=== PATIENT | male | born 1990 | race Caucasian/White ===

== ENCOUNTER 2023-10-30 12:21 | Inpatient (IN) | payer OTHER, MEDICAID ==
[~2023-10-30] VITALS: Ht 170.2 cm; Wt 63.6 kg
[2023-10-30 15:26] VITALS: BP 126/78; PULSE 98; RESP 18; TEMP 98.2; O2SAT 98
[2023-10-30] MEDS: HALOPERIDOL 5 MG TABLET PO PRN (20:08)
[2023-10-30] MEDS: LORazepam 2 MG TABLET PO PRN (20:08)
[2023-10-30 20:30] VITALS: BP 118/64; PULSE 87; RESP 18; TEMP 98; O2SAT 95
[2023-10-30] MEDS: ZOLPIDEM TARTRATE 10 MG TABLET PO PRN (21:50)
[2023-10-30] MEDS ORDERED: ACETAMINOPHEN 325 MG TABLET PO PRN (22:15)
[2023-10-30] MEDS ORDERED: MAGNESIUM HYDROXIDE SUSPENSION 30 ML UDCUP PO PRN (22:15)
[2023-10-30] MEDS ORDERED: MAG HYDROX/ALUMINUM HYD/SIMETH ES 30 ML SUSPENSION UDCUP PO PRN (22:15)
[2023-10-30] MEDS ORDERED: CloNIDine HCL 0.1 MG TABLET PO PRN (22:15)
[2023-10-30] MEDS ORDERED: DOCUSATE SODIUM 100 MG CAPSULE PO PRN (22:15)
[2023-10-30] MEDS ORDERED: ALBUTEROL SULFATE HFA 90 MCG/PUFF 8 GM INHALER IH PRN (22:15)
[2023-10-30] MEDS ORDERED: ONDANSETRON 4 MG TABLET PO PRN (22:15)
[2023-10-30] MEDS ORDERED: LOPERAMIDE HCL 2 MG CAPSULE PO PRN (22:15)
[2023-10-30] MEDS ORDERED: PETROLATUM,WHITE 28 GM JELLY TP PRN (22:15)
[2023-10-31 08:04] VITALS: RESP 17
[2023-10-31 10:55] LABS: EOSINOPHILS % (AUTO) 4.3 % (1.0-6.0); HEMATOCRIT 37.6 % (41-53); HEMOGLOBIN 12.5 g/dL (13.5-17.5); LYMPHOCYTES # (AUTO) 2.5 K/uL (1.0-4.8); LYMPHOCYTES % (AUTO) 27.9 % (22.0-44.0); MEAN CORPUSCULAR HEMOGLOBIN 30.9 pg (26.0-34.0); MEAN CORPUSCULAR HGB CONC 33.3 G/dL (31.0-37.0); MEAN CORPUSCULAR VOLUME 93 fL (80-100); MONOCYTES # (AUTO) 0.6 K/uL (0.1-1.0); MONOCYTES % (AUTO) 6.5 % (2.0-9.0); NEUTROPHILS # (AUTO) 5.4 K/uL (1.8-7.7); NEUTROPHILS % (AUTO) 60.3 % (40.0-70.0); PLATELET COUNT (AUTO) 297 K/uL (150-450); RED BLOOD CELL COUNT(AUTO) 4.05 MIL/uL (4.50-5.90); RED CELL DISTRIBUTION WIDTH 14.5 % (11.5-14.5); WHITE BLOOD COUNT (AUTO) 8.9 K/uL (4.5-11.0)
[2023-10-31 11:12] LABS: ALANINE AMINOTRANSFERASE 284 U/L (12-78); ALBUMIN 3.5 g/dL (3.4-5.0); ALKALINE PHOSPHATASE 249 U/L (46-116); ANION GAP 6 mmol/L (8-16); ASPARTATE AMINOTRANSFERASE 69 U/L (15-37); BILIRUBIN,TOTAL 0.4 mg/dL (0.1-1.0); CALCIUM, TOTAL 8.8 mg/dL (8.8-10.5); CARBON DIOXIDE 29 mmol/L (22-29); CHLORIDE 105 mmol/L (98-107); CREATININE 0.76 mg/dL (0.60-1.30); GLOMERULAR FILTR. RATE CALC > 60 mL/min (>60); GLUCOSE,RANDOM 102 mg/dL (70-110); SODIUM SERUM 140 mmol/L (136-145); THYROID STIMULATING HORMONE 1.66 uIU/mL (0.36-3.74); TOTAL PROTEIN, SERUM 7.5 g/dL (6.4-8.2); UREA NITROGEN, BLOOD 13 mg/dL (7-18)
[2023-10-31] MEDS: ARIPiprazole 15 MG TABLET PO SCH (12:01)
[2023-10-31] MEDS: QUEtiapine FUMARATE 200 MG TABLET PO SCH ×2 (18:08→21:28)
[2023-10-31 20:30] VITALS: BP 117/66; PULSE 92; RESP 18; TEMP 97.9; O2SAT 96
[2023-10-31] MEDS: LITHIUM CARBONATE 600 MG CAPSULE PO SCH (21:27)
[2023-11-01 21:07] VITALS: RESP 18
[2023-11-02 08:37] VITALS: BP 122/76; PULSE 78; RESP 18; TEMP 98.2
[2023-11-02 14:39] LABS: CHOL/HDL RATIO 2.1 (4.2-7.3)
[2023-11-02 20:07] VITALS: BP 101/56; PULSE 99; RESP 18; TEMP 97.1; O2SAT 96
[2023-11-03 20:13] VITALS: BP 103/59; PULSE 100; RESP 18; TEMP 96.5; O2SAT 98
[2023-11-04 10:10] VITALS: BP 114/71; PULSE 109; RESP 18; TEMP 98; O2SAT 96
[2023-11-04 12:54] LABS: ALANINE AMINOTRANSFERASE 312 U/L (12-78); ALBUMIN 4.1 g/dL (3.4-5.0); ALKALINE PHOSPHATASE 308 U/L (46-116); ANION GAP 8 mmol/L (8-16); ASPARTATE AMINOTRANSFERASE 106 U/L (15-37); BILIRUBIN,TOTAL 0.7 mg/dL (0.1-1.0); CALCIUM, TOTAL 9.2 mg/dL (8.8-10.5); CARBON DIOXIDE 26 mmol/L (22-29); CHLORIDE 105 mmol/L (98-107); CREATININE 0.89 mg/dL (0.60-1.30); GLOMERULAR FILTR. RATE CALC > 60 mL/min (>60); GLUCOSE,RANDOM 113 mg/dL (70-110); POTASSIUM 3.8 mmol/L (3.5-5.1); SODIUM SERUM 139 mmol/L (136-145); TOTAL PROTEIN, SERUM 8.7 g/dL (6.4-8.2); UREA NITROGEN, BLOOD 16 mg/dL (7-18)
[2023-11-04 12:55] LABS: LITHIUM 0.57 mmol/L (0.60-1.20)
[2023-11-04 21:00] VITALS: RESP 19
[2023-11-05 08:18] VITALS: BP 112/64; PULSE 86; RESP 18; TEMP 97.9; O2SAT 95
[2023-11-05 21:01] VITALS: RESP 18; TEMP 98.7
[2023-11-06 09:00] VITALS: BP 114/68; PULSE 91; RESP 16; TEMP 97.3; O2SAT 98
[2023-11-06 21:08] VITALS: BP 113/57; PULSE 92; RESP 18; TEMP 97.8
[2023-11-07] MEDS: MULTIVITAMINS WITH MINERALS, THERAPEUTIC TABLET PO SCH (08:31)
[2023-11-07 10:04] VITALS: RESP 18
[2023-11-07 20:08] VITALS: BP 131/77; PULSE 74; RESP 18; TEMP 97.9; O2SAT 98
[2023-11-08 09:53] LABS: MAGNESIUM 1.6 mg/dL (1.80-2.40)
[2023-11-08 10:56] VITALS: BP 107/72; PULSE 99; RESP 18; TEMP 97.6; O2SAT 99
[2023-11-09 14:29] VITALS: BP 128/87; PULSE 105; RESP 18; TEMP 98.2; O2SAT 96
[2023-11-10 09:03] VITALS: BP 95/53; PULSE 78; RESP 18; TEMP 98.4; O2SAT 78
[2023-11-10 10:34] VITALS: BP 95/53; PULSE 78; RESP 18; TEMP 98.6
[2023-11-10] MEDS: IBUPROFEN 400 MG TABLET PO PRN (10:34)
[2023-11-10 11:34] VITALS: BP 101/62; PULSE 71; RESP 17; TEMP 98
[2023-11-10 20:00] VITALS: TEMP 97
[2023-11-11 08:42] VITALS: BP 120/75; PULSE 108; RESP 18; TEMP 97.5; O2SAT 98
[2023-11-11 20:12] VITALS: RESP 18
[2023-11-12 04:06] LABS: HEPATITIS A ANTIBODY IGM Negative (Negative); HEPATITIS B CORE IGM Negative (Negative); HEPATITIS C AB (EIA) Non Reactive (Non Reactive)
[2023-11-12 10:47] VITALS: BP 104/60; PULSE 104; RESP 18; TEMP 98.6; O2SAT 97
[2023-11-12 21:08] VITALS: RESP 18
[2023-11-13 14:57] VITALS: BP 103/63; PULSE 79; RESP 18; TEMP 98.2
[2023-11-14 08:46] VITALS: BP 105/73; PULSE 102; RESP 17; TEMP 97.4; O2SAT 100
[2023-11-14 20:24] VITALS: BP 140/73; PULSE 99; RESP 18; TEMP 96.7; O2SAT 97
[2023-11-15 09:34] VITALS: BP 110/55; PULSE 92; RESP 18; TEMP 97.1; O2SAT 98
[2023-11-15] MEDS: TUBERCULIN, PURIFIED PROTEIN DERIVATIVE 5 TU/0.1 ML SYRINGE ID ONE (11:28)
[2023-11-15 20:35] VITALS: BP 119/62; PULSE 91; RESP 18; TEMP 97.5; O2SAT 97
[2023-11-16 18:12] VITALS: BP 112/63; PULSE 79; RESP 18; TEMP 98.1; O2SAT 98
[2023-11-17 09:10] VITALS: BP 109/60; PULSE 88; RESP 19; TEMP 97.9; O2SAT 99
[2023-11-18 08:23] VITALS: BP 117/59; PULSE 98; RESP 18; TEMP 98.4; O2SAT 99
[2023-11-18 20:23] VITALS: BP 110/63; PULSE 91; RESP 17; TEMP 97.6; O2SAT 97
[2023-11-19 09:22] VITALS: BP 113/65; PULSE 99; RESP 18; TEMP 97.1; O2SAT 99
[2023-11-19 10:24] VITALS: RESP 16
[2023-11-19 21:47] VITALS: RESP 18
[2023-11-20 07:22] LABS: ALANINE AMINOTRANSFERASE 172 U/L (12-78); ALBUMIN 3.5 g/dL (3.4-5.0); ALKALINE PHOSPHATASE 235 U/L (46-116); ANION GAP 9 mmol/L (8-16); ASPARTATE AMINOTRANSFERASE 58 U/L (15-37); BILIRUBIN,TOTAL 0.5 mg/dL (0.1-1.0); CALCIUM, TOTAL 9.1 mg/dL (8.8-10.5); CARBON DIOXIDE 27 mmol/L (22-29); CHLORIDE 104 mmol/L (98-107); CREATININE 0.81 mg/dL (0.60-1.30); GLOMERULAR FILTR. RATE CALC > 60 mL/min (>60); GLUCOSE,RANDOM 97 mg/dL (70-110); PHOSPHORUS 3.4 mg/dL (2.5-4.9); POTASSIUM 4.2 mmol/L (3.5-5.1); SODIUM SERUM 140 mmol/L (136-145); TOTAL PROTEIN, SERUM 7.6 g/dL (6.4-8.2); UREA NITROGEN, BLOOD 16 mg/dL (7-18)
[2023-11-20 08:55] VITALS: RESP 18
[2023-11-20 20:50] VITALS: RESP 18
[2023-11-21 08:20] VITALS: BP 138/63; PULSE 102; RESP 18; TEMP 97; O2SAT 96
[2023-11-21 20:58] VITALS: RESP 18
[2023-11-22 10:17] VITALS: BP 116/65; PULSE 87; RESP 18; TEMP 97.9; O2SAT 98
[2023-11-22 23:23] VITALS: RESP 18
[2023-11-23 09:56] VITALS: RESP 18
[2023-11-23 23:31] VITALS: RESP 18
[2023-11-24 08:54] VITALS: BP 114/72; PULSE 114; RESP 16; TEMP 97.7; O2SAT 100
[2023-11-25 09:22] VITALS: PULSE 100; RESP 19; TEMP 98.1; O2SAT 99
[2023-11-27 09:36] VITALS: BP 115/73; PULSE 92; RESP 18; TEMP 98.1; O2SAT 97
[2023-11-27 20:30] VITALS: BP 123/76; PULSE 94; RESP 18; TEMP 97.9; O2SAT 96
[2023-11-28 09:55] VITALS: RESP 19
[2023-11-28] MEDS: MAGNESIUM OXIDE 400 MG TABLET PO ONE (10:14)
[2023-11-28 21:34] VITALS: RESP 18
[2023-11-29 09:53] VITALS: RESP 18
[2023-11-29] MEDS: MAGNESIUM OXIDE 400 MG TABLET PO ONE (14:35)
[2023-11-29 21:14] VITALS: RESP 18
[2023-11-30 09:13] VITALS: BP 103/62; PULSE 92; RESP 19; TEMP 97; O2SAT 97
[2023-11-30] MEDS: MAGNESIUM OXIDE 400 MG TABLET PO ONE ×2 (14:30→20:08)
[2023-12-01] MEDS: MAGNESIUM OXIDE 400 MG TABLET PO SCH ×2 (08:02→16:10)
[2023-12-01 09:25] VITALS: BP 102/63; PULSE 87; RESP 18; TEMP 98.4; O2SAT 95
[2023-12-01 10:12] LABS: ANION GAP 6 mmol/L (8-16); CALCIUM, TOTAL 9.3 mg/dL (8.8-10.5); CARBON DIOXIDE 29 mmol/L (22-29); CHLORIDE 102 mmol/L (98-107); CREATININE 0.87 mg/dL (0.60-1.30); GLOMERULAR FILTR. RATE CALC > 60 mL/min (>60); GLUCOSE,RANDOM 121 mg/dL (70-110); POTASSIUM 4.1 mmol/L (3.5-5.1); SODIUM SERUM 137 mmol/L (136-145); UREA NITROGEN, BLOOD 10 mg/dL (7-18)
[2023-12-02 11:00] VITALS: RESP 18
[2023-12-02] MEDS: DiphenhydrAMINE HCL 50 MG/ML VIAL IM ONE (17:20)
[2023-12-02] MEDS: LORazepam 2 MG/ML VIAL IM ONE (17:21)
[2023-12-02] MEDS: HALOPERIDOL LACTATE 5 MG/ML VIAL IM ONE (17:22)
[2023-12-02 20:36] VITALS: RESP 18
[2023-12-03 08:51] VITALS: RESP 18
[2023-12-03] MEDS ORDERED: HALOPERIDOL LACTATE 5 MG/ML VIAL ONE (10:25)
[2023-12-03] MEDS ORDERED: LORazepam 2 MG/ML VIAL ONE (10:25)
[2023-12-03] MEDS ORDERED: DiphenhydrAMINE HCL 50 MG/ML VIAL ONE (10:26)
[2023-12-03] MEDS: LORazepam 2 MG/ML VIAL IM ONE (10:37)
[2023-12-03] MEDS: DiphenhydrAMINE HCL 50 MG/ML VIAL IM ONE (10:37)
[2023-12-03] MEDS: HALOPERIDOL LACTATE 5 MG/ML VIAL IM ONE (10:39)
[2023-12-03 20:22] VITALS: RESP 18
[2023-12-04] MEDS: DiphenhydrAMINE HCL 50 MG/ML VIAL IM ONE (07:46)
[2023-12-04] MEDS: HALOPERIDOL LACTATE 5 MG/ML VIAL IM ONE (07:48)
[2023-12-04] MEDS: LORazepam 2 MG/ML VIAL IM ONE (07:49)
[2023-12-04 08:56] VITALS: BP 104/72; PULSE 103; RESP 18; TEMP 98.6
[2023-12-05 08:09] VITALS: RESP 18
[2023-12-05] MEDS: NICOTINE 14 MG/24 HOUR PATCH TD PRN (09:25)
[2023-12-05 21:19] VITALS: BP 97/66; PULSE 100; RESP 18; TEMP 97.5; O2SAT 100
[2023-12-06] MEDS: LORazepam 2 MG/ML VIAL IM ONE (03:27)
[2023-12-06] MEDS: DiphenhydrAMINE HCL 50 MG/ML VIAL IM ONE (03:30)
[2023-12-06] MEDS: HALOPERIDOL LACTATE 5 MG/ML VIAL IM ONE (03:30)
[2023-12-06 08:39] VITALS: TEMP 97.8
[2023-12-06] MEDS: LITHIUM CARBONATE 300 MG CAPSULE PO SCH (09:15)
[2023-12-06 20:35] VITALS: RESP 18
[2023-12-07 09:11] VITALS: BP 108/63; PULSE 97; RESP 18; TEMP 98.1; O2SAT 97
[2023-12-07 20:55] VITALS: RESP 18
[2023-12-08 08:10] VITALS: TEMP 97.9
[2023-12-08] MEDS: DiphenhydrAMINE HCL 50 MG/ML VIAL IM ONE (14:44)
[2023-12-08] MEDS: HALOPERIDOL LACTATE 5 MG/ML VIAL IM ONE (14:47)
[2023-12-08] MEDS: LORazepam 2 MG/ML VIAL IM ONE (14:47)
[2023-12-09 08:10] VITALS: BP 127/87; PULSE 99; RESP 18; TEMP 98; O2SAT 100
[2023-12-09 20:27] VITALS: BP 105/77; PULSE 99; RESP 18; TEMP 97.8; O2SAT 98
[2023-12-10 08:12] VITALS: BP 129/78; PULSE 17; RESP 17; TEMP 97.9; O2SAT 99
[2023-12-10 20:30] VITALS: RESP 18
[2023-12-11 08:10] VITALS: BP 114/72; PULSE 106; RESP 16; TEMP 98.1; O2SAT 96
[2023-12-11] MEDS: LITHIUM CARBONATE 300 MG CAPSULE PO SCH (09:21)
[2023-12-12 08:51] VITALS: RESP 18
[2023-12-12 22:18] VITALS: BP 119/72; PULSE 108; RESP 18; TEMP 98.1; O2SAT 98
[2023-12-13 08:48] VITALS: TEMP 97.8
[2023-12-13 20:07] VITALS: BP 135/77; PULSE 94; RESP 18; TEMP 97.7; O2SAT 97
[2023-12-14 08:30] VITALS: TEMP 98
[2023-12-14] MEDS ORDERED: LORazepam 2 MG/ML VIAL ONE (10:19)
[2023-12-14] MEDS ORDERED: DiphenhydrAMINE HCL 50 MG/ML VIAL ONE (10:19)
[2023-12-14] MEDS ORDERED: HALOPERIDOL LACTATE 5 MG/ML VIAL ONE (10:19)
[2023-12-14] MEDS: LORazepam 2 MG/ML VIAL IM ONE (10:34)
[2023-12-14] MEDS: DiphenhydrAMINE HCL 50 MG/ML VIAL IM ONE (10:35)
[2023-12-14] MEDS: HALOPERIDOL LACTATE 5 MG/ML VIAL IM ONE (10:38)
[2023-12-14 22:18] VITALS: RESP 19; TEMP 97.8; O2SAT 98
[2023-12-15 08:24] VITALS: BP 102/68; PULSE 80; RESP 18; TEMP 98.2; O2SAT 97
[2023-12-15] MEDS: ARIPiprazole 10 MG TABLET PO SCH (08:58)
[2023-12-16 09:06] VITALS: BP 115/16; PULSE 92; RESP 17; TEMP 98.2
[2023-12-16 20:36] VITALS: BP 100/65; PULSE 95; RESP 18; TEMP 98.4
[2023-12-17 08:02] VITALS: BP 117/76; PULSE 89; RESP 18; TEMP 97.9
[2023-12-18 08:00] VITALS: BP 128/78; PULSE 82; RESP 18; TEMP 97.8; O2SAT 97
[2023-12-18] MEDS ORDERED: LORazepam 2 MG/ML VIAL ONE (13:57)
[2023-12-18] MEDS ORDERED: DiphenhydrAMINE HCL 50 MG/ML VIAL ONE (13:58)
[2023-12-18] MEDS: HALOPERIDOL LACTATE 5 MG/ML VIAL IM ONE ×2 (14:14→22:09)
[2023-12-18] MEDS: DiphenhydrAMINE HCL 50 MG/ML VIAL IM ONE ×2 (14:15→22:09)
[2023-12-18] MEDS: LORazepam 2 MG/ML VIAL IM ONE ×2 (14:17→22:08)
[2023-12-18 21:00] VITALS: BP 125/77; PULSE 84; RESP 18; TEMP 97.9; O2SAT 97
[2023-12-19 08:11] VITALS: TEMP 98
[2023-12-19] MEDS: HALOPERIDOL LACTATE 5 MG/ML VIAL IM PRN (11:33)
[2023-12-19 17:46] VITALS: RESP 18
[2023-12-19 20:07] VITALS: RESP 18
[2023-12-20 08:11] VITALS: RESP 18; TEMP 97.6
[2023-12-20 20:45] VITALS: RESP 18
[2023-12-21 08:30] VITALS: RESP 16
[2023-12-21 20:02] VITALS: RESP 18
[2023-12-22 09:25] VITALS: RESP 18
[2023-12-22 20:24] VITALS: BP 137/70; PULSE 85; RESP 17; TEMP 98.5; O2SAT 97
[2023-12-23 08:30] VITALS: BP 124/64; PULSE 95; RESP 18; TEMP 98.1; O2SAT 98
[2023-12-23 21:22] VITALS: RESP 18
[2023-12-24] MEDS: DiphenhydrAMINE HCL 50 MG/ML VIAL IM ONE (10:27)
[2023-12-24] MEDS: LORazepam 2 MG/ML VIAL IM ONE (10:28)
[2023-12-24] MEDS: HALOPERIDOL LACTATE 5 MG/ML VIAL IM ONE (10:29)
[2023-12-24 11:50] LABS: BASOPHILS % (AUTO) 0.8 % (0.0-2.0); EOSINOPHILS % (AUTO) 3.9 % (1.0-6.0); HEMATOCRIT 43.6 % (41-53); HEMOGLOBIN 14.1 g/dL (13.5-17.5); LYMPHOCYTES # (AUTO) 1.7 K/uL (1.0-4.8); LYMPHOCYTES % (AUTO) 17.7 % (22.0-44.0); MEAN CORPUSCULAR HEMOGLOBIN 29.9 pg (26.0-34.0); MEAN CORPUSCULAR HGB CONC 32.4 G/dL (31.0-37.0); MEAN CORPUSCULAR VOLUME 92 fL (80-100); MONOCYTES # (AUTO) 0.6 K/uL (0.1-1.0); MONOCYTES % (AUTO) 6.3 % (2.0-9.0); NEUTROPHILS # (AUTO) 6.9 K/uL (1.8-7.7); NEUTROPHILS % (AUTO) 71.3 % (40.0-70.0); PLATELET COUNT (AUTO) 296 K/uL (150-450); RED BLOOD CELL COUNT(AUTO) 4.72 MIL/uL (4.50-5.90); WHITE BLOOD COUNT (AUTO) 9.7 K/uL (4.5-11.0)
[2023-12-24 15:44] VITALS: RESP 18
[2023-12-24] MEDS: CloZAPine 25 MG TABLET PO SCH (16:22)
[2023-12-24] MEDS: QUEtiapine FUMARATE 200 MG TABLET PO SCH (20:43)
[2023-12-24 22:39] VITALS: RESP 18
[2023-12-25] MEDS: CloZAPine 25 MG TABLET PO SCH ×2 (07:46→20:58)
[2023-12-25 11:12] VITALS: BP 124/82; PULSE 110; RESP 18; TEMP 97.1; O2SAT 99
[2023-12-25] MEDS: DIVALPROEX SODIUM 500 MG DR TABLET PO SCH (11:51)
[2023-12-25 12:06] LABS: HEPATITIS A ANTIBODY IGM Negative (Negative); HEPATITIS B CORE IGM Negative (Negative); HEPATITIS C AB (EIA) Non Reactive (Non Reactive)
[2023-12-25 13:22] LABS: EOSINOPHILS % (AUTO) 2.1 % (1.0-6.0); HEMATOCRIT 40.8 % (41-53); LYMPHOCYTES # (AUTO) 3.6 K/uL (1.0-4.8); LYMPHOCYTES % (AUTO) 28.7 % (22.0-44.0); MEAN CORPUSCULAR HEMOGLOBIN 29.5 pg (26.0-34.0); MEAN CORPUSCULAR HGB CONC 31.9 G/dL (31.0-37.0); MEAN CORPUSCULAR VOLUME 93 fL (80-100); MONOCYTES % (AUTO) 7.7 % (2.0-9.0); NEUTROPHILS # (AUTO) 7.7 K/uL (1.8-7.7); NEUTROPHILS % (AUTO) 60.5 % (40.0-70.0); PLATELET COUNT (AUTO) 199 K/uL (150-450); RED BLOOD CELL COUNT(AUTO) 4.41 MIL/uL (4.50-5.90); RED CELL DISTRIBUTION WIDTH 15.1 % (11.5-14.5); WHITE BLOOD COUNT (AUTO) 12.7 K/uL (4.5-11.0)
[2023-12-25 22:25] VITALS: RESP 18
[2023-12-26] MEDS: CloZAPine 25 MG TABLET PO SCH ×2 (07:54→21:08)
[2023-12-26 08:58] VITALS: BP 131/79; PULSE 96; RESP 19; TEMP 97.2; O2SAT 99
[2023-12-26] MEDS: QUEtiapine FUMARATE 100 MG TABLET PO SCH (16:06)
[2023-12-26 21:02] VITALS: RESP 18
[2023-12-27] MEDS: CloZAPine 25 MG TABLET PO SCH (08:17)
[2023-12-27 09:01] VITALS: BP 120/68; PULSE 65; RESP 17; TEMP 98; O2SAT 98
[2023-12-27] MEDS: LORazepam 2 MG/ML VIAL IM ONE (15:58)
[2023-12-27] MEDS: DiphenhydrAMINE HCL 50 MG/ML VIAL IM ONE (15:58)
[2023-12-27] MEDS: ChlorproMAZINE HCL 50 MG/2 ML AMP IM ONE (15:58)
[2023-12-27] MEDS ORDERED: LORazepam 2 MG/ML VIAL IM ONE (18:15)
[2023-12-27] MEDS ORDERED: DiphenhydrAMINE HCL 50 MG/ML VIAL IM ONE (18:15)
[2023-12-27] MEDS ORDERED: ChlorproMAZINE HCL 50 MG/2 ML AMP IM ONE (18:15)
[2023-12-27 20:30] VITALS: BP 120/68; PULSE 88; RESP 18; TEMP 97.7; O2SAT 97
[2023-12-28 09:28] VITALS: RESP 19; TEMP 98
[2023-12-28 20:04] VITALS: RESP 18
[2023-12-29] MEDS: CloZAPine 25 MG TABLET PO SCH (08:42)
[2023-12-29 09:19] VITALS: RESP 18
[2023-12-29 20:04] VITALS: RESP 18
[2023-12-29] MEDS: CloZAPine 100 MG TABLET PO SCH (20:15)
[2023-12-30] MEDS: CloZAPine 25 MG TABLET PO SCH (09:01)
[2023-12-30 09:14] VITALS: RESP 18
[2023-12-30 20:22] VITALS: RESP 18
[2023-12-30] MEDS: CloZAPine 100 MG TABLET PO SCH (21:10)
[2023-12-31] MEDS: QUEtiapine FUMARATE 25 MG TABLET PO SCH (08:37)
[2023-12-31] MEDS: CloZAPine 25 MG TABLET PO SCH (08:37)
[2023-12-31 08:41] VITALS: BP 144/100; PULSE 78; RESP 18; TEMP 97.6; O2SAT 97
[2023-12-31] MEDS ORDERED: ChlorproMAZINE HCL 50 MG/2 ML AMP ONE (16:06)
[2023-12-31] MEDS ORDERED: LORazepam 2 MG/ML VIAL ONE (16:06)
[2023-12-31] MEDS ORDERED: DiphenhydrAMINE HCL 50 MG/ML VIAL ONE (16:06)
[2023-12-31] MEDS: LORazepam 2 MG/ML VIAL IM ONE (16:22)
[2023-12-31] MEDS: ChlorproMAZINE HCL 50 MG/2 ML AMP IM ONE (16:22)
[2023-12-31] MEDS: DiphenhydrAMINE HCL 50 MG/ML VIAL IM ONE (16:22)
[2023-12-31 20:01] VITALS: RESP 18
[2023-12-31] MEDS: CloZAPine 100 MG TABLET PO SCH (20:47)
[2024-01-01 07:15] LABS: BASOPHILS % (AUTO) 1.1 % (0.0-2.0); EOSINOPHILS % (AUTO) 2.6 % (1.0-6.0); HEMATOCRIT 42.7 % (41-53); LYMPHOCYTES # (AUTO) 3.2 K/uL (1.0-4.8); LYMPHOCYTES % (AUTO) 26.8 % (22.0-44.0); MEAN CORPUSCULAR HEMOGLOBIN 30.5 pg (26.0-34.0); MEAN CORPUSCULAR HGB CONC 32.8 G/dL (31.0-37.0); MEAN CORPUSCULAR VOLUME 93 fL (80-100); MONOCYTES # (AUTO) 0.8 K/uL (0.1-1.0); MONOCYTES % (AUTO) 6.8 % (2.0-9.0); NEUTROPHILS # (AUTO) 7.4 K/uL (1.8-7.7); NEUTROPHILS % (AUTO) 62.7 % (40.0-70.0); PLATELET COUNT (AUTO) 262 K/uL (150-450); RED BLOOD CELL COUNT(AUTO) 4.59 MIL/uL (4.50-5.90); RED CELL DISTRIBUTION WIDTH 15.7 % (11.5-14.5); WHITE BLOOD COUNT (AUTO) 11.8 K/uL (4.5-11.0)
[2024-01-01 08:12] VITALS: BP 121/78; PULSE 81; RESP 18; TEMP 99.1
[2024-01-01] MEDS: CloZAPine 100 MG TABLET PO SCH (08:39)
[2024-01-01 20:22] VITALS: BP 133/73; PULSE 105; RESP 18; TEMP 98.3
[2024-01-02 12:52] VITALS: RESP 18
[2024-01-02 21:50] VITALS: RESP 18
[2024-01-03] MEDS: CloZAPine 25 MG TABLET PO SCH (08:55)
[2024-01-03 08:57] VITALS: RESP 18; TEMP 98.7
[2024-01-03] MEDS: CloZAPine 100 MG TABLET PO SCH (20:42)
[2024-01-03 22:28] VITALS: RESP 18
[2024-01-04] MEDS: CloZAPine 25 MG TABLET PO SCH (09:10)
[2024-01-04 09:36] VITALS: BP 113/78; PULSE 111; RESP 18; TEMP 98; O2SAT 99
[2024-01-04] MEDS: CloZAPine 100 MG TABLET PO SCH (21:03)
[2024-01-04 21:11] VITALS: RESP 18
[2024-01-05] MEDS: CloZAPine 100 MG TABLET PO SCH ×2 (07:58→20:06)
[2024-01-05 09:38] VITALS: PULSE 114; RESP 16; TEMP 97.6; O2SAT 95
[2024-01-05 21:06] VITALS: RESP 18
[2024-01-06 08:19] VITALS: PULSE 102; RESP 18; TEMP 97.5; O2SAT 100
[2024-01-06 20:33] VITALS: RESP 18
[2024-01-07 08:38] VITALS: BP 132/83; PULSE 91; RESP 18; TEMP 98.4; O2SAT 100
[2024-01-07 21:42] VITALS: BP 138/78; PULSE 89; RESP 19; TEMP 98.2; O2SAT 99
[2024-01-08 06:59] LABS: BASOPHILS % (AUTO) 1.1 % (0.0-2.0); EOSINOPHILS % (AUTO) 3.2 % (1.0-6.0); HEMATOCRIT 41.1 % (41-53); HEMOGLOBIN 13.5 g/dL (13.5-17.5); LYMPHOCYTES # (AUTO) 1.6 K/uL (1.0-4.8); LYMPHOCYTES % (AUTO) 26.3 % (22.0-44.0); MEAN CORPUSCULAR HEMOGLOBIN 30.5 pg (26.0-34.0); MEAN CORPUSCULAR HGB CONC 32.8 G/dL (31.0-37.0); MEAN CORPUSCULAR VOLUME 93 fL (80-100); MONOCYTES # (AUTO) 0.4 K/uL (0.1-1.0); MONOCYTES % (AUTO) 6.1 % (2.0-9.0); NEUTROPHILS # (AUTO) 3.8 K/uL (1.8-7.7); NEUTROPHILS % (AUTO) 63.3 % (40.0-70.0); PLATELET COUNT (AUTO) 250 K/uL (150-450); RED BLOOD CELL COUNT(AUTO) 4.43 MIL/uL (4.50-5.90); RED CELL DISTRIBUTION WIDTH 15.6 % (11.5-14.5)
[2024-01-08 10:12] VITALS: TEMP 98
[2024-01-08 22:43] VITALS: RESP 18
[2024-01-09 08:47] VITALS: BP 133/80; PULSE 96; RESP 18; TEMP 97.7; O2SAT 100
[2024-01-09 21:09] VITALS: TEMP 97.9
[2024-01-10 09:26] VITALS: BP 134/82; PULSE 68; RESP 18; TEMP 97.6; O2SAT 97
[2024-01-10 20:37] VITALS: RESP 18
[2024-01-11 08:30] VITALS: BP 115/70; PULSE 99; RESP 18; TEMP 97.8; O2SAT 97
[2024-01-11 20:52] VITALS: BP 116/65; PULSE 105; RESP 18; TEMP 98.6; O2SAT 96
[2024-01-12 09:43] VITALS: RESP 18
[2024-01-12 21:55] VITALS: RESP 18
[2024-01-13 09:00] VITALS: RESP 18
[2024-01-13 21:54] VITALS: RESP 18
[2024-01-14 09:26] VITALS: RESP 18
[2024-01-14 20:42] VITALS: BP 136/75; PULSE 88; RESP 19; TEMP 97.9; O2SAT 89
[2024-01-15 08:30] VITALS: BP 121/81; PULSE 95; RESP 14
[2024-01-15] MEDS ORDERED: LORazepam 2 MG/ML VIAL ONE (14:20)
[2024-01-15] MEDS ORDERED: ChlorproMAZINE HCL 50 MG/2 ML AMP ONE (14:21)
[2024-01-15] MEDS ORDERED: DiphenhydrAMINE HCL 50 MG/ML VIAL ONE (14:21)
[2024-01-15] MEDS: ChlorproMAZINE HCL 50 MG/2 ML AMP IM ONE (14:34)
[2024-01-15] MEDS: LORazepam 2 MG/ML VIAL IM ONE (14:35)
[2024-01-15] MEDS: DiphenhydrAMINE HCL 50 MG/ML VIAL IM ONE (14:35)
[2024-01-15 21:08] VITALS: RESP 18
[2024-01-16 07:20] LABS: BASOPHILS % (AUTO) 0.7 % (0.0-2.0); EOSINOPHILS % (AUTO) 2.2 % (1.0-6.0); HEMATOCRIT 44.2 % (41-53); HEMOGLOBIN 14.5 g/dL (13.5-17.5); LYMPHOCYTES # (AUTO) 2.2 K/uL (1.0-4.8); LYMPHOCYTES % (AUTO) 24.1 % (22.0-44.0); MEAN CORPUSCULAR HEMOGLOBIN 30.4 pg (26.0-34.0); MEAN CORPUSCULAR HGB CONC 32.8 G/dL (31.0-37.0); MEAN CORPUSCULAR VOLUME 93 fL (80-100); MONOCYTES # (AUTO) 0.7 K/uL (0.1-1.0); MONOCYTES % (AUTO) 7.2 % (2.0-9.0); NEUTROPHILS % (AUTO) 65.8 % (40.0-70.0); PLATELET COUNT (AUTO) 290 K/uL (150-450); RED BLOOD CELL COUNT(AUTO) 4.78 MIL/uL (4.50-5.90); RED CELL DISTRIBUTION WIDTH 15.3 % (11.5-14.5); WHITE BLOOD COUNT (AUTO) 9.1 K/uL (4.5-11.0)
[2024-01-16 11:01] VITALS: RESP 17
[2024-01-16 20:56] VITALS: RESP 18
[2024-01-17 08:01] VITALS: RESP 17
[2024-01-17 21:26] VITALS: RESP 18
[2024-01-18 08:23] VITALS: BP 120/65; PULSE 92; RESP 18; TEMP 98
[2024-01-18 21:22] VITALS: RESP 18
[2024-01-20 08:33] VITALS: BP 137/82; PULSE 99; RESP 19; TEMP 97.1; O2SAT 96
[2024-01-20 21:03] VITALS: BP 123/75; PULSE 98; RESP 18; TEMP 98.2; O2SAT 98
[2024-01-21 09:33] VITALS: RESP 18
[2024-01-21 21:58] VITALS: RESP 18
[2024-01-22 09:08] VITALS: BP 137/62; PULSE 107; RESP 17; TEMP 97.2; O2SAT 96
[2024-01-22 09:42] LABS: BASOPHILS % (AUTO) 0.8 % (0.0-2.0); EOSINOPHILS % (AUTO) 2.1 % (1.0-6.0); HEMATOCRIT 43.8 % (41-53); HEMOGLOBIN 14.2 g/dL (13.5-17.5); LYMPHOCYTES # (AUTO) 2.7 K/uL (1.0-4.8); LYMPHOCYTES % (AUTO) 31.9 % (22.0-44.0); MEAN CORPUSCULAR HGB CONC 32.5 G/dL (31.0-37.0); MEAN CORPUSCULAR VOLUME 92 fL (80-100); MONOCYTES # (AUTO) 0.6 K/uL (0.1-1.0); MONOCYTES % (AUTO) 6.6 % (2.0-9.0); NEUTROPHILS # (AUTO) 4.9 K/uL (1.8-7.7); NEUTROPHILS % (AUTO) 58.6 % (40.0-70.0); PLATELET COUNT (AUTO) 325 K/uL (150-450); RED BLOOD CELL COUNT(AUTO) 4.74 MIL/uL (4.50-5.90); RED CELL DISTRIBUTION WIDTH 15.2 % (11.5-14.5); WHITE BLOOD COUNT (AUTO) 8.4 K/uL (4.5-11.0)
[2024-01-22] MEDS: ChlorproMAZINE HCL 50 MG/2 ML AMP IM ONE (17:08)
[2024-01-22] MEDS: LORazepam 2 MG/ML VIAL IM ONE (17:08)
[2024-01-22] MEDS: DiphenhydrAMINE HCL 50 MG/ML VIAL IM ONE (17:09)
[2024-01-23 08:43] VITALS: RESP 16
[2024-01-23 20:53] VITALS: RESP 18
[2024-01-24 08:12] VITALS: BP 133/76; PULSE 110; RESP 18; TEMP 97.8; O2SAT 95
[2024-01-24 21:04] VITALS: RESP 19; TEMP 97.9
[2024-01-25 09:21] VITALS: BP 136/73; PULSE 102; RESP 18; TEMP 98; O2SAT 100
[2024-01-25 09:23] VITALS: BP 136/73; PULSE 102; RESP 16; TEMP 98; O2SAT 100
[2024-01-25 22:04] VITALS: BP 135/87; PULSE 95; RESP 18; TEMP 98; O2SAT 95
[2024-01-26 08:09] VITALS: RESP 18; TEMP 98
[2024-01-26 21:08] VITALS: BP 113/58; PULSE 91; RESP 18; TEMP 97.4; O2SAT 97
[2024-01-27 08:08] VITALS: RESP 16
[2024-01-27] MEDS ORDERED: LORazepam 2 MG/ML VIAL ONE (13:32)
[2024-01-27] MEDS ORDERED: ChlorproMAZINE HCL 50 MG/2 ML AMP ONE (13:33)
[2024-01-27] MEDS ORDERED: DiphenhydrAMINE HCL 50 MG/ML VIAL ONE (13:33)
[2024-01-27] MEDS: LORazepam 2 MG/ML VIAL IM ONE (13:47)
[2024-01-27] MEDS: ChlorproMAZINE HCL 50 MG/2 ML AMP IM ONE (13:47)
[2024-01-27] MEDS: DiphenhydrAMINE HCL 50 MG/ML VIAL IM ONE (13:47)
[2024-01-27] MEDS: LITHIUM CARBONATE 600 MG CAPSULE PO SCH (20:22)
[2024-01-27 20:43] VITALS: RESP 16
[2024-01-28 08:05] VITALS: RESP 17
[2024-01-29 08:32] VITALS: RESP 18; TEMP 98
[2024-01-29 22:25] VITALS: RESP 18
[2024-01-30 09:00] LABS: BASOPHILS % (AUTO) 1.2 % (0.0-2.0); EOSINOPHILS % (AUTO) 1.8 % (1.0-6.0); HEMATOCRIT 42.4 % (41-53); HEMOGLOBIN 13.8 g/dL (13.5-17.5); LYMPHOCYTES # (AUTO) 3.1 K/uL (1.0-4.8); LYMPHOCYTES % (AUTO) 30.9 % (22.0-44.0); MEAN CORPUSCULAR HGB CONC 32.6 G/dL (31.0-37.0); MEAN CORPUSCULAR VOLUME 92 fL (80-100); MONOCYTES # (AUTO) 0.7 K/uL (0.1-1.0); MONOCYTES % (AUTO) 7.3 % (2.0-9.0); NEUTROPHILS # (AUTO) 5.9 K/uL (1.8-7.7); NEUTROPHILS % (AUTO) 58.8 % (40.0-70.0); PLATELET COUNT (AUTO) 281 K/uL (150-450); RED CELL DISTRIBUTION WIDTH 14.9 % (11.5-14.5); WHITE BLOOD COUNT (AUTO) 10.1 K/uL (4.5-11.0)
[2024-01-30 09:17] VITALS: TEMP 97.7
[2024-01-30] MEDS ORDERED: ChlorproMAZINE HCL 50 MG/2 ML AMP ONE (10:26)
[2024-01-30] MEDS ORDERED: LORazepam 2 MG/ML VIAL ONE (10:26)
[2024-01-30] MEDS ORDERED: DiphenhydrAMINE HCL 50 MG/ML VIAL ONE (10:26)
[2024-01-30] MEDS: DiphenhydrAMINE HCL 50 MG/ML VIAL IM ONE (10:43)
[2024-01-30] MEDS: LORazepam 2 MG/ML VIAL IM ONE (10:44)
[2024-01-30] MEDS: ChlorproMAZINE HCL 50 MG/2 ML AMP IM ONE (10:44)
[2024-01-30] MEDS: CloZAPine 100 MG TABLET PO SCH (21:18)
[2024-01-31 07:15] LABS: ANION GAP 9 mmol/L (8-16); CALCIUM, TOTAL 8.8 mg/dL (8.8-10.5); CARBON DIOXIDE 26 mmol/L (22-29); CHLORIDE 104 mmol/L (98-107); CREATININE 0.87 mg/dL (0.60-1.30); GLOMERULAR FILTR. RATE CALC > 60 mL/min (>60); GLUCOSE,RANDOM 96 mg/dL (70-110); POTASSIUM 4.4 mmol/L (3.5-5.1); SODIUM SERUM 138 mmol/L (136-145); UREA NITROGEN, BLOOD 10 mg/dL (7-18)
[2024-01-31 08:21] VITALS: RESP 18; TEMP 98.2
[2024-01-31] MEDS: DIVALPROEX SODIUM 500 MG DR TABLET PO SCH (11:30)
[2024-01-31 21:45] VITALS: BP 101/63; PULSE 70; RESP 18; TEMP 97.7
[2024-02-01 08:43] VITALS: BP 117/72; PULSE 100; RESP 18; TEMP 97.7
[2024-02-02 08:15] VITALS: BP 129/58; PULSE 107; RESP 17; TEMP 97.3; O2SAT 95
[2024-02-03 10:18] VITALS: BP 136/87; PULSE 80; RESP 17; TEMP 98; O2SAT 97
[2024-02-03 20:32] VITALS: BP 126/81; PULSE 100; RESP 18; TEMP 97.6; O2SAT 95
[2024-02-04 08:08] VITALS: BP 120/73; PULSE 110; RESP 17; TEMP 97.4; O2SAT 97
[2024-02-04] MEDS: DiphenhydrAMINE HCL 50 MG/ML VIAL IM ONE (15:57)
[2024-02-04] MEDS: ChlorproMAZINE HCL 50 MG/2 ML AMP IM ONE (15:58)
[2024-02-04] MEDS: LORazepam 2 MG/ML VIAL IM ONE (15:58)
[2024-02-04 21:11] VITALS: BP 124/79; PULSE 104; RESP 18; TEMP 97.9; O2SAT 98
[2024-02-05 08:19] VITALS: BP 115/65; PULSE 100; RESP 18; TEMP 98; O2SAT 97
[2024-02-06 08:14] VITALS: TEMP 98.1
[2024-02-06 10:06] LABS: BASOPHILS % (AUTO) 0.8 % (0.0-2.0); EOSINOPHILS % (AUTO) 1.9 % (1.0-6.0); HEMATOCRIT 40.7 % (41-53); HEMOGLOBIN 13.3 g/dL (13.5-17.5); LYMPHOCYTES # (AUTO) 3.3 K/uL (1.0-4.8); LYMPHOCYTES % (AUTO) 31.1 % (22.0-44.0); MEAN CORPUSCULAR HEMOGLOBIN 30.1 pg (26.0-34.0); MEAN CORPUSCULAR HGB CONC 32.7 G/dL (31.0-37.0); MEAN CORPUSCULAR VOLUME 92 fL (80-100); MONOCYTES # (AUTO) 0.8 K/uL (0.1-1.0); MONOCYTES % (AUTO) 7.9 % (2.0-9.0); NEUTROPHILS # (AUTO) 6.1 K/uL (1.8-7.7); NEUTROPHILS % (AUTO) 58.3 % (40.0-70.0); PLATELET COUNT (AUTO) 338 K/uL (150-450); RED BLOOD CELL COUNT(AUTO) 4.41 MIL/uL (4.50-5.90); RED CELL DISTRIBUTION WIDTH 14.9 % (11.5-14.5); WHITE BLOOD COUNT (AUTO) 10.5 K/uL (4.5-11.0)
[2024-02-06 22:51] VITALS: RESP 18
[2024-02-07 10:10] VITALS: BP 122/72; PULSE 93; RESP 18; TEMP 97.6; O2SAT 98
[2024-02-07 20:15] VITALS: RESP 18
[2024-02-08 08:49] VITALS: RESP 18
[2024-02-08 20:44] VITALS: RESP 18
[2024-02-09 08:14] VITALS: BP 115/72; PULSE 100; RESP 18; TEMP 97.8; O2SAT 98
[2024-02-09 22:47] VITALS: RESP 18
[2024-02-10 10:23] VITALS: RESP 18
[2024-02-10 20:20] VITALS: RESP 18
[2024-02-11 08:18] VITALS: BP 107/61; PULSE 104; RESP 17; TEMP 97.7
[2024-02-11 20:45] VITALS: RESP 18
[2024-02-12 08:20] VITALS: TEMP 97.9
[2024-02-12 11:23] LABS: HEMATOCRIT 39.2 % (41-53); LYMPHOCYTES # (AUTO) 2.7 K/uL (1.0-4.8); LYMPHOCYTES % (AUTO) 33.3 % (22.0-44.0); MEAN CORPUSCULAR HGB CONC 33.1 G/dL (31.0-37.0); MEAN CORPUSCULAR VOLUME 91 fL (80-100); MONOCYTES # (AUTO) 0.5 K/uL (0.1-1.0); NEUTROPHILS # (AUTO) 4.7 K/uL (1.8-7.7); NEUTROPHILS % (AUTO) 57.7 % (40.0-70.0); PLATELET COUNT (AUTO) 347 K/uL (150-450); RED BLOOD CELL COUNT(AUTO) 4.32 MIL/uL (4.50-5.90); RED CELL DISTRIBUTION WIDTH 14.3 % (11.5-14.5); WHITE BLOOD COUNT (AUTO) 8.1 K/uL (4.5-11.0)
[2024-02-12 21:37] VITALS: RESP 18
[2024-02-13 07:43] LABS: BASOPHILS % (AUTO) 0.8 % (0.0-2.0); EOSINOPHILS % (AUTO) 1.8 % (1.0-6.0); HEMATOCRIT 37.8 % (41-53); HEMOGLOBIN 12.5 g/dL (13.5-17.5); LYMPHOCYTES # (AUTO) 2.8 K/uL (1.0-4.8); MEAN CORPUSCULAR HEMOGLOBIN 30.2 pg (26.0-34.0); MEAN CORPUSCULAR HGB CONC 33.1 G/dL (31.0-37.0); MEAN CORPUSCULAR VOLUME 91 fL (80-100); MONOCYTES # (AUTO) 0.5 K/uL (0.1-1.0); MONOCYTES % (AUTO) 4.7 % (2.0-9.0); NEUTROPHILS # (AUTO) 7.1 K/uL (1.8-7.7); NEUTROPHILS % (AUTO) 66.7 % (40.0-70.0); PLATELET COUNT (AUTO) 333 K/uL (150-450); RED BLOOD CELL COUNT(AUTO) 4.15 MIL/uL (4.50-5.90); RED CELL DISTRIBUTION WIDTH 14.3 % (11.5-14.5); WHITE BLOOD COUNT (AUTO) 10.7 K/uL (4.5-11.0)
[2024-02-13 08:28] VITALS: RESP 17; RESP 18; TEMP 98.1
[2024-02-14 00:24] VITALS: RESP 18
[2024-02-14 08:08] VITALS: RESP 18; TEMP 97.8
[2024-02-14 20:40] VITALS: BP 142/79; PULSE 82; RESP 18
[2024-02-15 09:13] VITALS: BP 116/78; PULSE 68; RESP 18; TEMP 98.1
[2024-02-15 18:46] VITALS: BP 130/88; PULSE 103; RESP 18; TEMP 98.1
[2024-02-15 21:33] VITALS: RESP 18
[2024-02-16 09:11] VITALS: RESP 18
[2024-02-16 09:12] VITALS: RESP 17
[2024-02-16 19:49] VITALS: BP 127/76; PULSE 79; RESP 18; TEMP 97.8
[2024-02-16 20:49] VITALS: RESP 18
[2024-02-16 21:12] VITALS: RESP 18
[2024-02-17 08:09] VITALS: BP 123/84; PULSE 96; RESP 18; TEMP 97.4
[2024-02-17 20:16] VITALS: BP 120/70; PULSE 83; RESP 18; TEMP 97.5
[2024-02-17 21:01] VITALS: RESP 18
[2024-02-17 21:16] VITALS: RESP 18
[2024-02-18] MEDS: LITHIUM CARBONATE 300 MG CAPSULE PO SCH (08:37)
[2024-02-18 08:39] VITALS: TEMP 98.1
[2024-02-18 20:48] VITALS: RESP 18
[2024-02-19 08:23] VITALS: RESP 18; TEMP 98.2
[2024-02-19 08:43] LABS: BASOPHILS % (AUTO) 0.9 % (0.0-2.0); EOSINOPHILS % (AUTO) 2.6 % (1.0-6.0); HEMATOCRIT 43.6 % (41-53); HEMOGLOBIN 14.3 g/dL (13.5-17.5); LYMPHOCYTES % (AUTO) 32.8 % (22.0-44.0); MEAN CORPUSCULAR HEMOGLOBIN 30.2 pg (26.0-34.0); MEAN CORPUSCULAR HGB CONC 32.9 G/dL (31.0-37.0); MEAN CORPUSCULAR VOLUME 92 fL (80-100); MONOCYTES # (AUTO) 0.5 K/uL (0.1-1.0); NEUTROPHILS # (AUTO) 5.4 K/uL (1.8-7.7); NEUTROPHILS % (AUTO) 58.7 % (40.0-70.0); PLATELET COUNT (AUTO) 271 K/uL (150-450); RED BLOOD CELL COUNT(AUTO) 4.76 MIL/uL (4.50-5.90); RED CELL DISTRIBUTION WIDTH 14.7 % (11.5-14.5); WHITE BLOOD COUNT (AUTO) 9.1 K/uL (4.5-11.0)
[2024-02-19 22:15] VITALS: RESP 18
[2024-02-20 08:26] VITALS: RESP 17
[2024-02-20 20:21] VITALS: RESP 18
[2024-02-21 08:36] VITALS: RESP 18; TEMP 97.9
[2024-02-21 21:00] VITALS: RESP 18
[2024-02-22 08:16] VITALS: RESP 17
[2024-02-22 20:38] VITALS: RESP 18
[2024-02-23 08:05] VITALS: BP 113/69; PULSE 97; RESP 17; TEMP 97.5; O2SAT 98
[2024-02-23 21:54] VITALS: RESP 18
[2024-02-24 05:49] VITALS: RESP 18
[2024-02-24 10:24] VITALS: BP 142/91; PULSE 110; RESP 19; TEMP 98.6; O2SAT 98
[2024-02-24 20:34] VITALS: RESP 16
[2024-02-25 08:42] VITALS: BP 125/76; PULSE 99; RESP 19; TEMP 98.1; O2SAT 99
[2024-02-25 20:42] VITALS: RESP 18
[2024-02-26 06:55] LABS: BASOPHILS % (AUTO) 1.1 % (0.0-2.0); EOSINOPHILS % (AUTO) 2.4 % (1.0-6.0); HEMATOCRIT 44.7 % (41-53); HEMOGLOBIN 14.6 g/dL (13.5-17.5); LYMPHOCYTES # (AUTO) 3.1 K/uL (1.0-4.8); LYMPHOCYTES % (AUTO) 34.4 % (22.0-44.0); MEAN CORPUSCULAR HGB CONC 32.6 G/dL (31.0-37.0); MEAN CORPUSCULAR VOLUME 92 fL (80-100); MONOCYTES # (AUTO) 0.6 K/uL (0.1-1.0); MONOCYTES % (AUTO) 6.9 % (2.0-9.0); NEUTROPHILS % (AUTO) 55.2 % (40.0-70.0); PLATELET COUNT (AUTO) 219 K/uL (150-450); RED BLOOD CELL COUNT(AUTO) 4.86 MIL/uL (4.50-5.90); RED CELL DISTRIBUTION WIDTH 14.6 % (11.5-14.5); WHITE BLOOD COUNT (AUTO) 9.1 K/uL (4.5-11.0)
[2024-02-26 08:11] VITALS: BP 106/79; PULSE 79; RESP 18; TEMP 96.8; O2SAT 99
[2024-02-27 08:09] VITALS: RESP 18; TEMP 98.2
[2024-02-27 20:18] VITALS: RESP 18; TEMP 98; O2SAT 99
[2024-02-28 10:19] VITALS: RESP 17; TEMP 98.3
[2024-02-28 23:04] VITALS: RESP 18
[2024-02-29 09:40] VITALS: RESP 18
[2024-02-29 21:39] VITALS: RESP 18
[2024-03-01 10:41] VITALS: RESP 18
[2024-03-01 23:23] VITALS: RESP 18
[2024-03-02 10:06] VITALS: RESP 18
[2024-03-02] MEDS: ChlorproMAZINE HCL 50 MG/2 ML AMP IM ONE (11:48)
[2024-03-02] MEDS: LORazepam 2 MG/ML VIAL IM ONE (11:48)
[2024-03-02] MEDS: DiphenhydrAMINE HCL 50 MG/ML VIAL IM ONE (11:48)
[2024-03-02 20:43] VITALS: RESP 18
[2024-03-03 08:39] VITALS: RESP 18
[2024-03-03] MEDS: HALOPERIDOL LACTATE 5 MG/ML VIAL IM PRN (09:24)
[2024-03-03] MEDS ORDERED: DiphenhydrAMINE HCL 50 MG/ML VIAL ONE (15:44)
[2024-03-03] MEDS ORDERED: LORazepam 2 MG/ML VIAL ONE (15:44)
[2024-03-03] MEDS ORDERED: ChlorproMAZINE HCL 50 MG/2 ML AMP ONE (15:44)
[2024-03-03] MEDS: DiphenhydrAMINE HCL 50 MG/ML VIAL IM ONE (15:56)
[2024-03-03] MEDS: ChlorproMAZINE HCL 50 MG/2 ML AMP IM ONE (15:57)
[2024-03-03] MEDS: LORazepam 2 MG/ML VIAL IM ONE (15:57)
[2024-03-03 20:55] VITALS: RESP 19; TEMP 97.6
[2024-03-04 07:26] LABS: BASOPHILS % (AUTO) 0.6 % (0.0-2.0); EOSINOPHILS % (AUTO) 1.8 % (1.0-6.0); HEMOGLOBIN 14.5 g/dL (13.5-17.5); LYMPHOCYTES # (AUTO) 4.2 K/uL (1.0-4.8); LYMPHOCYTES % (AUTO) 28.5 % (22.0-44.0); MEAN CORPUSCULAR HEMOGLOBIN 29.8 pg (26.0-34.0); MEAN CORPUSCULAR HGB CONC 32.3 G/dL (31.0-37.0); MEAN CORPUSCULAR VOLUME 93 fL (80-100); MONOCYTES # (AUTO) 1.2 K/uL (0.1-1.0); MONOCYTES % (AUTO) 8.2 % (2.0-9.0); NEUTROPHILS % (AUTO) 60.9 % (40.0-70.0); PLATELET COUNT (AUTO) 210 K/uL (150-450); RED BLOOD CELL COUNT(AUTO) 4.86 MIL/uL (4.50-5.90); WHITE BLOOD COUNT (AUTO) 14.8 K/uL (4.5-11.0)
[2024-03-04 11:27] VITALS: BP 121/71; PULSE 99; RESP 17; TEMP 97.5
[2024-03-04 23:21] VITALS: RESP 18
[2024-03-05] MEDS: GuaiFENesin/D-METHORPHAN [SUGAR-FREE] 200-20MG/10 ML SYRUP UDCUP PO PRN (08:23)
[2024-03-05 14:12] VITALS: RESP 18
[2024-03-05 20:14] VITALS: BP 118/69; PULSE 108; RESP 18; TEMP 97.6
[2024-03-06 08:30] VITALS: RESP 18
[2024-03-06 20:45] VITALS: RESP 18
[2024-03-07 15:19] LABS: COVID AG,FIA SOURCE NASAL SWAB
[2024-03-07 16:00] LABS: SARS-COV2 (COVID) ANTIGEN,FIA Negative (Negative)
[2024-03-07 20:43] VITALS: RESP 18
[2024-03-08 09:47] VITALS: BP 140/90; PULSE 102; RESP 18; TEMP 97.6; O2SAT 100
[2024-03-08 21:44] VITALS: RESP 18
[2024-03-09 12:35] VITALS: RESP 18
[2024-03-09 20:40] VITALS: RESP 18
[2024-03-10 12:24] VITALS: RESP 17
[2024-03-10 20:36] VITALS: RESP 18
[2024-03-11 08:03] LABS: BASOPHILS % (AUTO) 0.7 % (0.0-2.0); EOSINOPHILS % (AUTO) 0.4 % (1.0-6.0); HEMATOCRIT 41.8 % (41-53); HEMOGLOBIN 13.6 g/dL (13.5-17.5); LYMPHOCYTES # (AUTO) 1.4 K/uL (1.0-4.8); LYMPHOCYTES % (AUTO) 15.6 % (22.0-44.0); MEAN CORPUSCULAR HEMOGLOBIN 29.7 pg (26.0-34.0); MEAN CORPUSCULAR HGB CONC 32.5 G/dL (31.0-37.0); MEAN CORPUSCULAR VOLUME 91 fL (80-100); MONOCYTES # (AUTO) 1.1 K/uL (0.1-1.0); MONOCYTES % (AUTO) 11.7 % (2.0-9.0); NEUTROPHILS # (AUTO) 6.5 K/uL (1.8-7.7); NEUTROPHILS % (AUTO) 71.6 % (40.0-70.0); PLATELET COUNT (AUTO) 243 K/uL (150-450); RED BLOOD CELL COUNT(AUTO) 4.58 MIL/uL (4.50-5.90); RED CELL DISTRIBUTION WIDTH 15.1 % (11.5-14.5); WHITE BLOOD COUNT (AUTO) 9.1 K/uL (4.5-11.0)
[2024-03-11 13:26] VITALS: RESP 18
[2024-03-11 21:21] VITALS: RESP 18; TEMP 97.3
[2024-03-12 08:54] VITALS: BP 117/65; PULSE 101; RESP 18; TEMP 97.3
[2024-03-12 20:45] VITALS: RESP 18; TEMP 97.6
[2024-03-13 08:25] VITALS: BP 131/89; PULSE 99; RESP 18; TEMP 96.6; O2SAT 100
[2024-03-13 20:47] VITALS: RESP 18; TEMP 97.4
[2024-03-14 10:47] VITALS: RESP 18
[2024-03-15 09:13] VITALS: BP 102/70; PULSE 69; RESP 18; TEMP 96.8; O2SAT 96
[2024-03-15 22:43] VITALS: RESP 18
[2024-03-16 09:21] VITALS: BP 147/83; PULSE 109; RESP 18; TEMP 97.6
[2024-03-16 20:26] VITALS: RESP 18
[2024-03-17 10:00] VITALS: RESP 18
[2024-03-17 21:06] VITALS: RESP 18
[2024-03-18 10:36] VITALS: BP 95/73; PULSE 95; RESP 18; TEMP 97.8; O2SAT 100
[2024-03-18 23:03] VITALS: RESP 18
[2024-03-19 09:03] LABS: BASOPHILS % (AUTO) 0.8 % (0.0-2.0); EOSINOPHILS % (AUTO) 2.6 % (1.0-6.0); HEMATOCRIT 48.4 % (41-53); HEMOGLOBIN 15.9 g/dL (13.5-17.5); LYMPHOCYTES # (AUTO) 2.5 K/uL (1.0-4.8); LYMPHOCYTES % (AUTO) 31.7 % (22.0-44.0); MEAN CORPUSCULAR HEMOGLOBIN 29.9 pg (26.0-34.0); MEAN CORPUSCULAR HGB CONC 32.9 G/dL (31.0-37.0); MEAN CORPUSCULAR VOLUME 91 fL (80-100); MONOCYTES # (AUTO) 0.4 K/uL (0.1-1.0); MONOCYTES % (AUTO) 5.5 % (2.0-9.0); NEUTROPHILS # (AUTO) 4.8 K/uL (1.8-7.7); NEUTROPHILS % (AUTO) 59.4 % (40.0-70.0); PLATELET COUNT (AUTO) 268 K/uL (150-450); RED BLOOD CELL COUNT(AUTO) 5.33 MIL/uL (4.50-5.90); RED CELL DISTRIBUTION WIDTH 14.5 % (11.5-14.5)
[2024-03-19 09:51] VITALS: BP 102/72; PULSE 87; RESP 16; TEMP 97; O2SAT 99
[2024-03-19 20:54] VITALS: RESP 17; O2SAT 17
[2024-03-20] VITALS: RESP 19
[2024-03-20 02:56] VITALS: RESP 17
[2024-03-20 04:15] VITALS: RESP 20
[2024-03-20 11:18] VITALS: BP 138/77; PULSE 76; RESP 16; TEMP 98; O2SAT 100
[2024-03-20 21:35] VITALS: RESP 19
[2024-03-21 08:57] VITALS: BP 149/94; PULSE 101; RESP 18; TEMP 97.8; O2SAT 98
[2024-03-21 20:03] VITALS: BP 126/74; PULSE 85; RESP 18; TEMP 97.6; O2SAT 98
[2024-03-22 09:35] VITALS: BP 117/74; PULSE 97; RESP 18; TEMP 97.3; O2SAT 98
[2024-03-22 21:51] VITALS: RESP 18
[2024-03-23 08:50] VITALS: RESP 18
[2024-03-23 20:47] VITALS: RESP 18
[2024-03-24 09:36] VITALS: BP 108/68; PULSE 100; RESP 18; TEMP 97.5; O2SAT 98
[2024-03-24 20:10] VITALS: RESP 19; TEMP 98
[2024-03-25 08:30] VITALS: BP 110/70; PULSE 76; RESP 18; TEMP 97.8; O2SAT 98
[2024-03-25 21:40] VITALS: BP 131/85; PULSE 107; RESP 18; TEMP 97.2; O2SAT 98
[2024-03-26 08:00] LABS: BASOPHILS % (AUTO) 0.6 % (0.0-2.0); EOSINOPHILS % (AUTO) 2.1 % (1.0-6.0); HEMATOCRIT 46.8 % (41-53); HEMOGLOBIN 15.4 g/dL (13.5-17.5); LYMPHOCYTES # (AUTO) 3.5 K/uL (1.0-4.8); LYMPHOCYTES % (AUTO) 32.3 % (22.0-44.0); MEAN CORPUSCULAR HGB CONC 32.9 G/dL (31.0-37.0); MEAN CORPUSCULAR VOLUME 91 fL (80-100); MONOCYTES # (AUTO) 0.7 K/uL (0.1-1.0); MONOCYTES % (AUTO) 6.6 % (2.0-9.0); NEUTROPHILS # (AUTO) 6.3 K/uL (1.8-7.7); NEUTROPHILS % (AUTO) 58.4 % (40.0-70.0); PLATELET COUNT (AUTO) 292 K/uL (150-450); RED BLOOD CELL COUNT(AUTO) 5.13 MIL/uL (4.50-5.90); RED CELL DISTRIBUTION WIDTH 14.6 % (11.5-14.5); WHITE BLOOD COUNT (AUTO) 10.7 K/uL (4.5-11.0)
[2024-03-26 10:06] VITALS: RESP 18
[2024-03-26] MEDS: VALPROIC ACID 250 MG/5 ML SOLUTION UDCUP PO SCH (11:49)
[2024-03-26 20:47] VITALS: BP 103/56; PULSE 100; RESP 18; TEMP 96.7; O2SAT 98
[2024-03-27 10:53] VITALS: RESP 18; O2SAT 98
[2024-03-27 21:53] VITALS: RESP 17
[2024-03-28 09:16] VITALS: BP 115/83; PULSE 72; RESP 18; TEMP 97.7; O2SAT 98
[2024-03-28 20:24] VITALS: RESP 18
[2024-03-29 09:24] VITALS: BP 137/94; PULSE 101; RESP 19; TEMP 97.1; O2SAT 99
[2024-03-29 21:25] VITALS: RESP 20
[2024-03-30 08:45] VITALS: BP 131/82; PULSE 116; RESP 18; TEMP 97.8; O2SAT 98
[2024-03-30 20:23] VITALS: RESP 18
[2024-03-31 20:28] VITALS: BP 119/70; PULSE 90; RESP 18; TEMP 97.4; O2SAT 97
[2024-04-01 08:43] VITALS: BP 121/93; PULSE 72; RESP 16; TEMP 97; O2SAT 97
[2024-04-01 21:03] VITALS: RESP 18
[2024-04-02 08:13] LABS: BASOPHILS % (AUTO) 0.8 % (0.0-2.0); EOSINOPHILS % (AUTO) 2.3 % (1.0-6.0); HEMATOCRIT 43.2 % (41-53); HEMOGLOBIN 13.8 g/dL (13.5-17.5); LYMPHOCYTES # (AUTO) 2.8 K/uL (1.0-4.8); LYMPHOCYTES % (AUTO) 27.4 % (22.0-44.0); MEAN CORPUSCULAR HEMOGLOBIN 29.6 pg (26.0-34.0); MEAN CORPUSCULAR VOLUME 92 fL (80-100); MONOCYTES # (AUTO) 0.9 K/uL (0.1-1.0); MONOCYTES % (AUTO) 8.5 % (2.0-9.0); NEUTROPHILS # (AUTO) 6.3 K/uL (1.8-7.7); PLATELET COUNT (AUTO) 215 K/uL (150-450); RED BLOOD CELL COUNT(AUTO) 4.68 MIL/uL (4.50-5.90); RED CELL DISTRIBUTION WIDTH 15.3 % (11.5-14.5); WHITE BLOOD COUNT (AUTO) 10.3 K/uL (4.5-11.0)
[2024-04-02 09:38] VITALS: RESP 18
[2024-04-02 21:00] VITALS: BP 109/72; PULSE 89; RESP 18; TEMP 97.4; O2SAT 97
[2024-04-03 08:56] VITALS: BP 133/84; PULSE 86; RESP 18; TEMP 98.1; O2SAT 98
[2024-04-03 20:31] VITALS: BP 128/77; PULSE 84; RESP 18; TEMP 97.9
[2024-04-04 10:42] VITALS: RESP 18; TEMP 97.8
[2024-04-04 20:30] VITALS: BP 124/81; PULSE 88; RESP 18; TEMP 97.7; O2SAT 97
[2024-04-05 08:35] VITALS: BP 130/75; PULSE 98; RESP 18; TEMP 98.2; O2SAT 98
[2024-04-05 20:46] VITALS: BP 123/81; PULSE 98; RESP 18; TEMP 98; O2SAT 99
[2024-04-06 11:25] VITALS: RESP 18
[2024-04-06 20:34] VITALS: RESP 18
[2024-04-07 08:48] VITALS: RESP 17
[2024-04-07 20:34] VITALS: RESP 18
[2024-04-08 09:17] VITALS: BP 148/78; PULSE 106; RESP 17; TEMP 97.8; O2SAT 98
[2024-04-08 20:27] VITALS: BP 127/78; PULSE 121; RESP 19; TEMP 97.5; O2SAT 98
[2024-04-09 09:16] VITALS: RESP 18
[2024-04-09 15:12] LABS: BASOPHILS % (AUTO) 0.9 % (0.0-2.0); EOSINOPHILS % (AUTO) 2.9 % (1.0-6.0); HEMATOCRIT 40.6 % (41-53); HEMOGLOBIN 13.2 g/dL (13.5-17.5); LYMPHOCYTES # (AUTO) 2.3 K/uL (1.0-4.8); LYMPHOCYTES % (AUTO) 28.8 % (22.0-44.0); MEAN CORPUSCULAR HEMOGLOBIN 29.6 pg (26.0-34.0); MEAN CORPUSCULAR HGB CONC 32.6 G/dL (31.0-37.0); MEAN CORPUSCULAR VOLUME 91 fL (80-100); MONOCYTES # (AUTO) 0.6 K/uL (0.1-1.0); MONOCYTES % (AUTO) 7.6 % (2.0-9.0); NEUTROPHILS # (AUTO) 4.7 K/uL (1.8-7.7); NEUTROPHILS % (AUTO) 59.8 % (40.0-70.0); PLATELET COUNT (AUTO) 217 K/uL (150-450); RED BLOOD CELL COUNT(AUTO) 4.48 MIL/uL (4.50-5.90); RED CELL DISTRIBUTION WIDTH 15.4 % (11.5-14.5); WHITE BLOOD COUNT (AUTO) 7.9 K/uL (4.5-11.0)
[2024-04-09 22:34] VITALS: BP 117/67; PULSE 100; RESP 18; TEMP 98.1; O2SAT 95
[2024-04-10 11:37] VITALS: RESP 18
[2024-04-10 21:52] VITALS: RESP 19
[2024-04-11 14:36] VITALS: RESP 18
[2024-04-11 23:00] VITALS: RESP 17
[2024-04-12 10:35] VITALS: RESP 19
[2024-04-12 20:52] VITALS: RESP 18
[2024-04-13 09:00] VITALS: RESP 18
[2024-04-13 22:50] VITALS: BP 123/97; PULSE 114; RESP 18; TEMP 98.3; O2SAT 98
[2024-04-14 08:17] VITALS: RESP 18
[2024-04-14 20:15] VITALS: RESP 18
[2024-04-15 10:16] LABS: BASOPHILS % (AUTO) 1.2 % (0.0-2.0); EOSINOPHILS % (AUTO) 2.8 % (1.0-6.0); HEMATOCRIT 44.4 % (41-53); HEMOGLOBIN 14.7 g/dL (13.5-17.5); LYMPHOCYTES # (AUTO) 2.1 K/uL (1.0-4.8); LYMPHOCYTES % (AUTO) 24.8 % (22.0-44.0); MEAN CORPUSCULAR HEMOGLOBIN 30.3 pg (26.0-34.0); MEAN CORPUSCULAR VOLUME 92 fL (80-100); MONOCYTES # (AUTO) 0.5 K/uL (0.1-1.0); MONOCYTES % (AUTO) 5.6 % (2.0-9.0); NEUTROPHILS # (AUTO) 5.6 K/uL (1.8-7.7); NEUTROPHILS % (AUTO) 65.6 % (40.0-70.0); PLATELET COUNT (AUTO) 239 K/uL (150-450); RED BLOOD CELL COUNT(AUTO) 4.84 MIL/uL (4.50-5.90); RED CELL DISTRIBUTION WIDTH 15.3 % (11.5-14.5); WHITE BLOOD COUNT (AUTO) 8.5 K/uL (4.5-11.0)
[2024-04-15 10:25] LABS: ANION GAP 11 mmol/L (8-16); CALCIUM, TOTAL 8.9 mg/dL (8.8-10.5); CARBON DIOXIDE 27 mmol/L (22-29); CHLORIDE 104 mmol/L (98-107); CREATININE 0.86 mg/dL (0.60-1.30); GLOMERULAR FILTR. RATE CALC > 60 mL/min (>60); GLUCOSE,RANDOM 88 mg/dL (70-110); POTASSIUM 4.3 mmol/L (3.5-5.1); SODIUM SERUM 142 mmol/L (136-145); UREA NITROGEN, BLOOD 16 mg/dL (7-18)
[2024-04-15 10:48] VITALS: RESP 18
== END 2024-04-15 15:25 | DRG 885 ==
LOC: 3EC 14:00
PROVIDERS: ADMIT Psychiatry & Neurology Child & Adolescent Psychiatry; ATTEND Psychiatry & Neurology Child & Adolescent Psychiatry
PROC: GZHZZZZ Group Psychotherapy (ICD-10-PCS; principal; 2023-10-31)
PROC: GZ52ZZZ Individual Psychotherapy, Cognitive (ICD-10-PCS; 2023-10-31)
DX: F25.0 Schizoaffective disorder, bipolar type (principal); Z93.3 Colostomy status; D64.9 Anemia, unspecified; F10.10 Alcohol abuse, uncomplicated; Z20.822 Contact with and (suspected) exposure to COVID-19; G47.00 Insomnia, unspecified; R74.01 Elevation of levels of liver transaminase levels; E83.42 Hypomagnesemia; F41.9 Anxiety disorder, unspecified; D72.829 Elevated white blood cell count, unspecified; Y90.9 Presence of alcohol in blood, level not specified; F60.9 Personality disorder, unspecified; Z88.8 Allergy status to other drugs, medicaments and biological substances; Z91.148 Patient's other noncompliance with medication regimen for other reason
CPT/HCPCS: 80048; 80053; 80061; 80074; 80164; 80178; 83036; 83735; 84100; 84443; 85025; 87081; J1200; J1630; J2060; J3230

== ENCOUNTER 2023-12-27 18:18 | Emergency (ER) | payer MEDICAID, OTHER ==
[~2023-12-27] VITALS: Ht 162.6 cm; Wt 60.5 kg
[2023-12-27 19:13] VITALS: BP 125/80; PULSE 124; RESP 18
== END 2023-12-27 19:51 | disposition home or self-care (01) ==
LOC: EMS 18:23
DX: S00.12XA Contusion of left eyelid and periocular area, initial encounter (principal); X58.XXXA Exposure to other specified factors, initial encounter; Y93.89 Activity, other specified; Y92.89 Other specified places as the place of occurrence of the external cause; Y99.8 Other external cause status
CPT/HCPCS: 99281; 99285; Z7502